=== PATIENT | male | born 1970 | race Caucasian/White ===

== ENCOUNTER 2020-07-01 15:58 | Inpatient (IN) | payer OTHER ==
--- NOTE | 2020-07-01 16:37 | BHS.RME ---
Substance Use & Tx History - Substance Use History Alcohol Substance amount: 1 gallon Frequency of use: Daily Substance route: Oral Date of Last Use: 06/30/20 Cannabis Substance amount: 4 joint Frequency of use: Daily Substance route: Smoking Date of Last Use: 06/30/20 - Last Treatment Date of last treatment: Never Physical/Psych/Mental Status - Behavior General Behavior: Increased activity (restlessness, agitation) Eye Contact: Normal Other Behaviors: Mannerisms - Cooperativeness Cooperativeness: Cooperative - Thinking Thought Processes: Tight, Logical Thought content: Future oriented - Physical Health Problems Is patient presently having any pain?: Yes (chronic backpain) Does patient presently have any injuries (include location): No Does patient currently have a fever: No CIWA Nausea/Vomitin-Mild Nausea/No Vomiting Muscle Tremors: 2 Anxiety: 2 Agitation: 2 Paroxysmal Sweats: 2 Orientation: 0-Oriented Tacttile Disturbances: 1-Very Mild Itch/Numbness Auditory Disturbances: 2-Mild Harshness/Frighten Visual Disturbances: 0-None Headache: 1-Very Mild CIWA-Ar Total Score: 13
--- NOTE | 2020-07-01 17:08 | HP ---
CIWA Score Nausea/Vomitin-Mild Nausea/No Vomiting Muscle Tremors: 3 Anxiety: 2 Agitation: 2 Paroxysmal Sweats: 2 Orientation: 0-Oriented Tacttile Disturbances: 1-Very Mild Itch/Numbness Auditory Disturbances: 2-Mild Harshness/Frighten Visual Disturbances: 0-None Headache: 1-Very Mild CIWA-Ar Total Score: 14 - Admission Criteria OASAS Guidelines: Admission for Medically Managed Detox: Requires at least one of the followin. CIWA greater than 12 2. Seizures within the past 24 hours 3. Delirium tremens within the past 24 hours 4. Hallucinations within the past 24 hours 5. Acute intervention needed for co occurring medical disorder 6. Acute intervention needed for co occurring psychiatric disorder 7. Severe withdrawal that cannot be handled at a lower level of care (continued vomiting, continued diarrhea, abnormal vital signs) requiring intravenous medication and/or fluids 8. Patient presents the following: CIWA greater than 12 Admission Criteria Met: Admission criteria met Admission ROS S - [facility] Chief Complaint: I need detox Allergies/Adverse Reactions: Allergies Allergy/AdvReac Type Severity Reaction Status Date / Time acetaminophen [From Tylenol] Allergy Severe Hives Verified 07/01/20 17:59 codeine Allergy Severe Hives Verified 07/01/20 17:59 History of Present Illness: Patient is a 50 [id number] who presents for detox from alcohol. Patient was evaluated at [facility] last night for intoxication then sent here this afternoon. He reports this as his first time in detox. Exam Limitations: No Limitations - Ebola screening Have you traveled outside of the country in the last 21 days: No Have you had contact with anyone from an Ebola affected area: No Have you been sick,other than usual withdrawal symptoms: No Do you have a fever: No - Review of Systems Constitutional: Chills, Loss of Appetite EENT: reports: Blurred Vision Respiratory: reports: No Symptoms reported Cardiac: reports: No Symptoms Reported GI: reports: Diarrhea, Nausea, Poor Appetite, Vomiting, Abdominal cramping : reports: No Symptoms Reported Musculoskeletal: reports: Back Pain, Joint Pain, Muscle Pain, Muscle Weakness Integumentary: reports: Flushing Neuro: reports: Headache, Numbness, Tremors, Weakness, Unsteady Gait Endocrine: reports: No Symptoms Reported Hematology: reports: Anemia Psychiatric: reports: Anxious Other Systems: Reviewed and Negative Patient History - Patient Medical History Hx Anemia: Yes Hx Asthma: No Hx Chronic Obstructive Pulmonary Disease (COPD): No Hx Cancer: No Hx Cardiac Disorders: No Hx Congestive Heart Failure: No Hx Hypertension: Yes Hx Hypercholesterolemia: No Hx Pacemaker: No HX Cerebrovascular Accident: Yes (2017) Hx Seizures: Yes (2018) Hx Dementia: No Hx Diabetes: No Hx Gastrointestinal Disorders: Yes (GERD) Hx Liver Disease: No Hx Genitourinary Disorders: No Hx Sexually Transmitted Disorders: No Hx Renal Disease (ESRD): No Hx Thyroid Disease: No Hx Human Immunodeficiency Virus (HIV): No Hx Hepatitis C: No Hx Depression: No Hx Suicide Attempt: No Hx Bipolar Disorder: Yes Hx Schizophrenia: No - Patient Surgical History Past Surgical History: Yes Hx Neurologic Surgery: Yes (C2 to T2 laminectomy 2014) Hx Orthopedic Surgery: Yes (bilateral LEs for several fractures, carpal tunnel surgery in both hands) Anesthesia Reaction: No - PPD History Previous Implant?: Yes Documented Results: Negative w/o proof Implanted On Prior [facility] Admission?: No PPD to be Administered?: Yes - Smoking Cessation Smoking history: Current every day smoker Have you smoked in the past 12 months: Yes Aproximately how many cigarettes per day: 20 Hx Chewing Tobacco Use: No Initiated information on smoking cessation: Yes 'Breaking Loose' booklet given: 07/01/20 - Substances abused Alcohol Substance route: Oral Frequency: Daily Amount used: 1 gallon of vodka daily Age of first use: 11 Date of last use: 07/01/20 Admission Physical Exam BHS - Physical General Appearance: Yes: Mild Distress, Tremorous, Sweating, Other (multiple facial piercing) HEENTM: Yes: Hearing grossly Normal, Normocephalic, Normal Voice, Pharynx Normal Respiratory: Yes: Chest Non-Tender, Lungs Clear, Normal Breath Sounds, No Respiratory Distress, No Accessory Muscle Use Neck: Yes: No masses,lesions,Nodules, Supple Breast: Yes: Breast Exam Deferred Cardiology: Yes: Regular Rhythm, Regular Rate, S1, S2 Abdominal: Yes: Normal Bowel Sounds, Non Tender, Soft Genitourinary: Yes: Within Normal Limits Back: Yes: Normal Inspection Musculoskeletal: Yes: Back pain, Muscle weakness Extremities: Yes: Tremors Neurological: Yes: Normal Mood/Affect, Normal Response, Numbness Integumentary: Yes: Cold, Other (left knee abrasion from fall) Lymphatic: Yes: Within Normal Limits - Diagnostic (1) Alcohol dependence, uncomplicated Current Visit: Yes Status: Acute (2) Nicotine dependence Current Visit: Yes Status: Acute Qualifiers: Nicotine product type: cigarettes Substance use status: uncomplicated Qualified Code(s): F17.210 - Nicotine dependence, cigarettes, uncomplicated (3) Chronic back pain Current Visit: Yes Status: Chronic Qualifiers: Back pain location: thoracic back pain Back pain laterality: bilateral Qualified Code(s): M54.6 - Pain in thoracic spine; G89.29 - Other chronic pain Cleared for Admission BHS - Detox or Rehab Detox Regimen/Protocol: Librium Claeared for Rehab Admission: No Breathalyzer - Breathalyzer Breathalyzer: 0.122 Urine Drug Screen - Test Device Lot number: [id number] Expiration date: 06/13/22 - Control Is test valid?: Yes - Results Urine drug screen results: THC-Marijuana, MTD-Methadone, BUP-Suboxone Inpatient Rehab Admission - Rehab Decision to Admit Inpatient rehab admission?: No
[2020-07-01] MEDS ORDERED: MAG HYDROX/AL HYDROX/SIMETH 30 ML UNIT-DOSE CUP PO PRN (17:20)
[2020-07-01] MEDS ORDERED: MENTHOL/PHENOL 1 EACH UD MM PRN (17:20)
[2020-07-01] MEDS ORDERED: NICOTINE POLACRILEX 2 MG GUM BUC PRN (17:20)
[2020-07-01] MEDS ORDERED: IBUPROFEN 400 MG TABLET (FP) PO PRN (17:20)
[2020-07-01] MEDS ORDERED: MAGNESIUM HYDROX 2400MG/30ML ORAL SUSPENSION 30 ML CUP PO PRN (17:20)
[2020-07-01] MEDS ORDERED: MAGNESIUM CITRATE 300 ML BOTTLE PO PRN (17:20)
[2020-07-01] MEDS ORDERED: chlordiazePOXIDE HCL 10 MG CAPSULE PO PRN (17:20)
[2020-07-01] MEDS ORDERED: BISMUTH SUBSALICYLATE 524 MG/30 ML UD PO PRN (17:20)
[2020-07-01] MEDS ORDERED: ONDANSETRON *ODT* 4 MG TABLET SL ONE (17:20)
[2020-07-01 18:12] VITALS: BMI 29.1
[2020-07-01] MEDS: hydrOXYzine PAMOATE 25 MG CAPSULE (FP) PO SCH ×2 (19:27→23:02)
[2020-07-01] MEDS: MELATONIN 5 MG TABLETS PO SCH (23:02)
[2020-07-01] MEDS: THIAMINE HCL 100 MG TABLET (FP) PO SCH (23:02)
[2020-07-01] MEDS: chlordiazePOXIDE HCL 25 MG CAPSULE PO SCH (23:02)
[2020-07-02] MEDS: hydrOXYzine PAMOATE 25 MG CAPSULE (FP) PO SCH ×5 (06:06→22:23)
[2020-07-02] MEDS: chlordiazePOXIDE HCL 25 MG CAPSULE PO SCH ×2 (06:06→12:29)
[2020-07-02] MEDS: PRENATAL VITAMINS W/ FOLIC ACID TABLET (FP) PO SCH (10:26)
[2020-07-02] MEDS: NICOTINE 7 MG/24 HOURS TOPICAL PATCH TD SCH (10:27)
[2020-07-02 12:10] LABS: HEMATOCRIT 31.2 % (35.4-49); HEMOGLOBIN 10.7 GM/dL (11.7-16.9); MCH 33.3 pg (25.7-33.7); MCHC 34.3 g/dl (32.0-35.9); MEAN CELL VOLUME 97.2 fl (80-96); MEAN PLT VOLUME 8.2 fl (7.5-11.1); PLATELET COUNT 56 K/MM3 (134-434); RBC 3.21 M/mm3 (4.00-5.60); RDW 13.8 % (11.9-15.9)
[2020-07-02 12:21] LABS: WHITE BLOOD COUNT 1.7 K/mm3 (4.0-10.0)
[2020-07-02 12:31] LABS: ALBUMIN 2.5 g/dl (3.4-5.0); BILIRUBIN,TOTAL 2.2 mg/dL (0.2-1); BLOOD UREA NITROGEN 6.7 mg/dL (7-18); CALCIUM 7.9 mg/dL (8.5-10.1); CREATININE 0.8 mg/dL (0.55-1.3); POTASSIUM 3.3 mmol/L (3.5-5.1); TOT PROT 6.6 g/dl (6.4-8.2)
--- NOTE | 2020-07-02 13:30 | PN ---
[facility] CIWA - CIWA Score Nausea/Vomitin-Mild Nausea/No Vomiting Muscle Tremors: 2 Anxiety: 3 Agitation: 1-Slight > Activity Paroxysmal Sweats: 1-Minimal Palms Moist Orientation: 0-Oriented Tacttile Disturbances: 1-Very Mild Itch/Numbness Auditory Disturbances: 0-None Visual Disturbances: 2-Mild Sensitivity Headache: 0-None Present CIWA-Ar Total Score: 11 BHS Progress Note (SOAP) Subjective: 50 years old male first [facility] detox admission Laboratory Tests 07/02/20 07/02/20 07/02/20 07:15 07:15 07:15 WBC 1.7 L* RBC 3.21 L Hgb 10.7 L Hct 31.2 L MCV 97.2 H MCH 33.3 MCHC 34.3 RDW 13.8 Plt Count 56 L MPV 8.2 Sodium 138 Potassium 3.3 L Chloride 103 Carbon Dioxide 30 Anion Gap 5 L BUN 6.7 L Creatinine 0.8 Est GFR (CKD-EPI)AfAm 122.43 Est GFR (CKD-EPI)NonAf 105.63 Random Glucose 89 Calcium 7.9 L Total Bilirubin 2.2 H AST 185 H ALT 58 Alkaline Phosphatase 187 H Total Protein 6.6 Albumin 2.5 L Syphilis Serology Non-reactive low wbc with ast elevation was admitted on 07/01/20 for alcohol withdrawal sx management treating with librium detox regiment Objective: 07/02/20 13:36 Vital Signs - 24 hr 07/01/20 07/01/20 07/01/20 18:09 18:38 20:58 Temperature 98.8 F 98.0 F 98.4 F Pulse Rate 89 78 85 Respiratory 18 18 18 Rate Blood Pressure 141/86 136/89 128/89 O2 Sat by Pulse 98 94 L Oximetry (%) 07/02/20 07/02/20 07/02/20 06:07 08:35 12:57 Temperature 96.8 F L 98.4 F 98 F Pulse Rate 69 64 66 Respiratory 16 18 16 Rate Blood Pressure 129/76 104/62 111/64 O2 Sat by Pulse 100 100 100 Oximetry (%) 07/02/20 13:36 discontinue librium begin ativan for alcohol withdrawal 07/02/20 13:42 repeat ast Assessment: 07/02/20 13:36 alcohol withdrawal Plan: ativan regiment
[2020-07-02] MEDS ORDERED: LORazepam 0.5 MG TABLET ONE (13:58)
[2020-07-02] MEDS: LORazepam 1 MG TABLET PO PRN (14:03)
[2020-07-02] MEDS: LORazepam 2 MG TABLET PO SCH ×2 (17:11→22:22)
[2020-07-02] MEDS: MELATONIN 5 MG TABLETS PO SCH (22:22)
[2020-07-02] MEDS: THIAMINE HCL 100 MG TABLET (FP) PO SCH (22:23)
[2020-07-03] MEDS: METHOCARBAMOL 500 MG TABLET PO PRN (03:05)
[2020-07-03] MEDS: LORazepam 1 MG TABLET PO PRN ×2 (03:07→13:31)
[2020-07-03] MEDS ORDERED: chlordiazePOXIDE 5 MG CAPSULE PO SCH (05:00)
[2020-07-03] MEDS: LORazepam 1 MG TABLET PO SCH ×4 (06:20→22:49)
[2020-07-03] MEDS: hydrOXYzine PAMOATE 25 MG CAPSULE (FP) PO SCH ×5 (06:20→22:49)
[2020-07-03] MEDS: PRENATAL VITAMINS W/ FOLIC ACID TABLET (FP) PO SCH (10:11)
[2020-07-03] MEDS: NICOTINE 7 MG/24 HOURS TOPICAL PATCH TD SCH (10:24)
[2020-07-03 10:58] LABS: HEMOGLOBIN 10.8 GM/dL (11.7-16.9); MEAN PLT VOLUME 8.5 fl (7.5-11.1); RBC 3.31 M/mm3 (4.00-5.60); WHITE BLOOD COUNT 3.3 K/mm3 (4.0-10.0)
[2020-07-03 11:03] LABS: HEMATOCRIT 31.3 % (35.4-49); MCH 32.7 pg (25.7-33.7); MCHC 34.5 g/dl (32.0-35.9); MEAN CELL VOLUME 94.7 fl (80-96); PLATELET COUNT 53 K/MM3 (134-434); RDW 13.7 % (11.9-15.9)
--- NOTE | 2020-07-03 11:45 | PN ---
[facility] CIWA - CIWA Score Nausea/Vomitin-Mild Nausea/No Vomiting Muscle Tremors: 1-None Visible, but [place] Anxiety: 1-Mildly Anxious Agitation: 1-Slight > Activity Paroxysmal Sweats: 1-Minimal Palms Moist Orientation: 0-Oriented Tacttile Disturbances: 0-None Auditory Disturbances: 0-None Visual Disturbances: 1-Very Mild Sensitivity Headache: 1-Very Mild CIWA-Ar Total Score: 7 BHS Progress Note (SOAP) Subjective: 50 years old male was admitted on 07/01/20 for alcohol withdrawal sx management treating with ativan detox regiment low wbc repeat wbc result 3.3 muscle cramping robaxin 500mg po x 1 Objective: 07/03/20 11:50 Vital Signs - 24 hr 07/02/20 07/02/20 07/02/20 12:57 16:48 20:38 Temperature 98 F 98.2 F 97.5 F L Pulse Rate 66 67 71 Respiratory 16 16 18 Rate Blood Pressure 111/64 142/93 140/87 O2 Sat by Pulse 100 98 Oximetry (%) 07/03/20 07/03/20 06:16 08:38 Temperature 98.6 F 98.4 F Pulse Rate 76 80 Respiratory 16 18 Rate Blood Pressure 122/66 97/59 L O2 Sat by Pulse 95 Oximetry (%) Laboratory Tests 07/02/20 07/02/20 07/02/20 07:15 07:15 07:15 WBC 1.7 L* RBC 3.21 L Hgb 10.7 L Hct 31.2 L MCV 97.2 H MCH 33.3 MCHC 34.3 RDW 13.8 Plt Count 56 L MPV 8.2 Sodium 138 Potassium 3.3 L Chloride 103 Carbon Dioxide 30 Anion Gap 5 L BUN 6.7 L Creatinine 0.8 Est GFR (CKD-EPI)AfAm 122.43 Est GFR (CKD-EPI)NonAf 105.63 Random Glucose 89 Calcium 7.9 L Total Bilirubin 2.2 H AST 185 H ALT 58 Alkaline Phosphatase 187 H Total Protein 6.6 Albumin 2.5 L Syphilis Serology Non-reactive 07/03/20 07:45 WBC 3.3 L RBC 3.31 L Hgb 10.8 L Hct 31.3 L MCV 94.7 MCH 32.7 MCHC 34.5 RDW 13.7 Plt Count 53 L MPV 8.5 Sodium Potassium Chloride Carbon Dioxide Anion Gap BUN Creatinine Est GFR (CKD-EPI)AfAm Est GFR (CKD-EPI)NonAf Random Glucose Calcium Total Bilirubin AST ALT Alkaline Phosphatase Total Protein Albumin Syphilis Serology covid pending 07/03/20 11:51 ast repeat pending Assessment: 07/03/20 11:52 alcohol withdrawal Plan: ativan regiment
[2020-07-03] MEDS ORDERED: METHOCARBAMOL 500 MG TABLET PO ONE (11:46)
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
[2020-07-03] MEDS: MELATONIN 5 MG TABLETS PO SCH (22:49)
[2020-07-03] MEDS: THIAMINE HCL 100 MG TABLET (FP) PO SCH (22:49)
[2020-07-04] MEDS ORDERED: chlordiazePOXIDE HCL 10 MG CAPSULE PO PRN
[2020-07-04] MEDS: METHOCARBAMOL 500 MG TABLET PO PRN (01:50)
[2020-07-04] MEDS: LORazepam 0.5 MG TABLET PO PRN ×2 (01:50→14:53)
[2020-07-04] MEDS ORDERED: chlordiazePOXIDE HCL 10 MG CAPSULE PO SCH (05:00)
[2020-07-04] MEDS: LORazepam 0.5 MG TABLET PO SCH ×4 (06:01→22:13)
[2020-07-04] MEDS: hydrOXYzine PAMOATE 25 MG CAPSULE (FP) PO SCH ×5 (06:01→22:12)
--- NOTE | 2020-07-04 09:29 | PN ---
Psychiatric Progress Note Vital Signs: Vital Signs Period Temp Pulse Resp BP Sys/Chaney Pulse Ox Last 24 Hr 97.5 F-98.6 F 72-108 18-18 97-125/55-76 95-97 Date of Session: 07/04/20 Chief Complaint:: " I saw six rats in my room." HPI: Patient admitted to for alcohol dependence. ROS: Patient is calm , cooperative, alert +oriented X3. Current Medications: Active Medications Generic Name Dose Route Start Last Admin Trade Name Freq PRN Reason Stop Dose Admin Al Hydroxide/Mg Hydroxide 30 ml 07/01/20 17:20 Mylanta Oral Suspension - PO Q6H PRN DYSPEPSIA Bismuth Subsalicylate 524 mg 07/01/20 17:20 Pepto-Bismol - PO Q1H PRN DIARRHEA Eucalyptus/Menthol/Phenol/Sorbitol 1 each 07/01/20 17:20 Cepastat Lozenge - MM 07/07/20 17:20 Q4H PRN SORE THROAT Hydroxyzine Pamoate 25 mg 07/01/20 18:00 07/04/20 06:01 Vistaril - PO 07/07/20 17:20 25 mg Q4HWA ALANNAH Administration Ibuprofen 400 mg 07/01/20 17:20 Motrin - PO Q6H PRN PAIN LEVEL 1 - 3 Lorazepam 0.5 mg 07/04/20 05:00 07/04/20 06:01 Ativan - PO 07/04/20 23:01 0.5 mg Q6H ALANNAH Administration Lorazepam 0.5 mg 07/04/20 00:00 07/04/20 01:50 Ativan - PO 07/05/20 00:00 0.5 mg Q4H PRN Administration Symptoms of Withdrawal Lorazepam 0.5 mg 07/05/20 05:00 Ativan - PO 07/05/20 05:01 ONCE ONE Magnesium Citrate 300 ml 07/01/20 17:20 Citroma - PO Q48H PRN CONSTIPATION Magnesium Hydroxide 30 ml 07/01/20 17:20 Milk Of Magnesia - PO PRN PRN CONSTIPATION Melatonin 5 mg 07/01/20 22:00 07/03/20 22:49 Melatonin PO 5 mg HS ALANNAH Administration Methocarbamol 500 mg 07/01/20 17:20 07/04/20 01:50 Robaxin - PO 07/07/20 17:20 500 mg Q6H PRN Administration MUSCLE SPASMS Nicotine 7 mg 07/02/20 10:00 07/03/20 10:24 Nicoderm Patch - TD Not Given DAILY ALANNAH Nicotine Polacrilex 2 mg 07/01/20 17:20 Nicorette Gum - BUC Q2H PRN NICOTINE REPLACEMENT RX Multivit/Folic Acid/Iron 1 tab 07/02/20 10:00 07/03/20 10:11 Vitamins ([facility]) - PO 1 tab DAILY ALANNAH Administration Thiamine HCl 100 mg 07/01/20 22:00 07/03/20 22:49 Vitamin B1 - PO 100 mg HS ALANNAH Administration Medication(s) Change(s): Yes. Will add Trazodone 50mg HS. Current Side Effect: No Lab tests ordered: No Lab tests reviewed: Yes Provider note:: Patient seen by Dr. Wall on 07/03/20. Dr. Wall note read and appreciated. Consultation ordered due to patient reporting auditory hallucinations of seeing six rats in his room yesterday. Stated to bond writer that it only occured once. He reports feeling better this morning and denies experiencing auditory/ visual hallucinations. No psychosis noted. At present patient is c/o insomnia. Will order Trazodone 50mg HS. Benefits and side effects discussed. Verbal consent given. Total face to face time:: 25 Mental Status Exam - Mental Status Exam Alert and Oriented to: Time, Place, Person Cognitive Function: Good Patient Appearance: Unkempt (face is covered with piercing rods) Mood: Withdrawn Affect: Mood Congruent Patient Behavior: Cooperative Speech Pattern: Appropriate Voice Loudness: Normal Thought Process: Goal Oriented Thought Disorder: Not Present Hallucinations: Denies Suicidal Ideation: Denies Homicidal Ideation: Denies Insight/Judgement: Poor Sleep: Poorly Appetite: Fair Muscle strength/Tone: Normal Gait/Station: Other (Patient ambulates with a wheelchair.) Psychiatric Treatment Plan - Problem List (1) Substance-induced sleep disorder Comment: .. (2) Alcohol dependence, uncomplicated Comment: .. (3) History of bipolar disorder Comment: .. (4) Nicotine dependence Qualifiers: Nicotine product type: cigarettes Substance use status: in withdrawal Qualified Code(s): F17.213 - Nicotine dependence, cigarettes, with withdrawal Comment: ..
[2020-07-04] MEDS: PRENATAL VITAMINS W/ FOLIC ACID TABLET (FP) PO SCH (10:12)
[2020-07-04] MEDS: NICOTINE 7 MG/24 HOURS TOPICAL PATCH TD SCH (10:13)
--- NOTE | 2020-07-04 13:31 | PN ---
[facility] CIWA - CIWA Score Nausea/Vomitin-No Nausea/No Vomiting Muscle Tremors: 1-None Visible, but [place] Anxiety: 1-Mildly Anxious Agitation: 1-Slight > Activity Paroxysmal Sweats: 1-Minimal Palms Moist Orientation: 0-Oriented Tacttile Disturbances: 0-None Auditory Disturbances: 0-None Visual Disturbances: 0-None Headache: 0-None Present CIWA-Ar Total Score: 4 BHS Progress Note (SOAP) Subjective: 50 years old male was admitted on 07/01/20 for alcohol withdrawal sx management treating with ativan detox regiment reports seeing animal running on the floor and bugs moving on the wall at night mr saul is alert oriented x 3 denies suicidal no homocidal no self destructive behavior noted denies auditory hallucination case discussed with psychiatrist mr saul states "I feel much better" denies visual hallucination discussing aftercare with staff that mr saul prefers to go to [facility] for alcohol abuse treatment mr saul requests suboxone encourage mr saul returning to his suboxone provider for continuity of care Objective: 07/04/20 13:33 Vital Signs - 24 hr 07/03/20 07/03/20 07/04/20 16:15 20:22 05:55 Temperature 98.2 F 98.6 F 98.6 F Pulse Rate 78 108 H 72 Respiratory 18 18 18 Rate Blood Pressure 125/76 104/63 97/55 L O2 Sat by Pulse 95 97 95 Oximetry (%) 07/04/20 07/04/20 08:54 12:35 Temperature 98.2 F 98.6 F Pulse Rate 78 70 Respiratory 18 18 Rate Blood Pressure 85/53 L 113/78 O2 Sat by Pulse 95 Oximetry (%) Laboratory Tests 07/01/20 07/02/20 07/02/20 05:50 07:15 07:15 WBC 1.7 L* RBC 3.21 L Hgb 10.7 L Hct 31.2 L MCV 97.2 H MCH 33.3 MCHC 34.3 RDW 13.8 Plt Count 56 L MPV 8.2 Sodium Potassium Chloride Carbon Dioxide Anion Gap BUN Creatinine Est GFR (CKD-EPI)AfAm Est GFR (CKD-EPI)NonAf Random Glucose Calcium Total Bilirubin AST ALT Alkaline Phosphatase Total Protein Albumin Syphilis Serology Non-reactive COVID-19 (KELLIE) Not detected HIV Ag/Ab Combo Qual 07/02/20 07/03/20 07/03/20 07:15 07:45 07:45 WBC 3.3 L RBC 3.31 L Hgb 10.8 L Hct 31.3 L MCV 94.7 MCH 32.7 MCHC 34.5 RDW 13.7 Plt Count 53 L MPV 8.5 Sodium 138 Potassium 3.3 L Chloride 103 Carbon Dioxide 30 Anion Gap 5 L BUN 6.7 L Creatinine 0.8 Est GFR (CKD-EPI)AfAm 122.43 Est GFR (CKD-EPI)NonAf 105.63 Random Glucose 89 Calcium 7.9 L Total Bilirubin 2.2 H AST 185 H ALT 58 Alkaline Phosphatase 187 H Total Protein 6.6 Albumin 2.5 L Syphilis Serology COVID-19 (KELLIE) HIV Ag/Ab Combo Qual Negative lab noted anemia Assessment: 07/04/20 13:36 alcohol withdrawal anemia Plan: ativan regiment ferrous sulfate 325 mg po daily
[2020-07-04] MEDS: FERROUS SO4 325 MG TABLET (FP) PO SCH (14:52)
[2020-07-04] MEDS ORDERED: traZODone HCL 50 MG TABLET (FP) PO SCH (22:00)
[2020-07-04] MEDS: MELATONIN 5 MG TABLETS PO SCH (22:13)
[2020-07-04] MEDS: THIAMINE HCL 100 MG TABLET (FP) PO SCH (22:13)
[2020-07-05] MEDS ORDERED: chlordiazePOXIDE HCL 10 MG CAPSULE PO ONE (05:00)
[2020-07-05] MEDS ORDERED: LORazepam 0.5 MG TABLET PO ONE (05:00)
[2020-07-05] MEDS: hydrOXYzine PAMOATE 25 MG CAPSULE (FP) PO SCH ×2 (05:54→09:35)
[2020-07-05] MEDS: FERROUS SO4 325 MG TABLET (FP) PO SCH (08:42)
[2020-07-05 09:17] VITALS: BP 113/68; PULSE 64; TEMP 98.2
[2020-07-05] MEDS: PRENATAL VITAMINS W/ FOLIC ACID TABLET (FP) PO SCH (09:35)
[2020-07-05] MEDS: NICOTINE 7 MG/24 HOURS TOPICAL PATCH TD SCH (09:37)
--- NOTE | 2020-07-05 11:37 | DS ---
[facility] Detox Discharge Summary Admission Date: 07/01/20 Discharge Date: 07/05/20 - History Present History: Alcohol Dependence Additional Comments: 50 years old male was admitted 07/01/20 for alcohol withdrawal sx management treated with ativan detox regiment seen by psychiatrist x 2 in detox trazodine po hs mr saul has completed the ativan regiment and is tolerated well General Appearance: Yes: no Distress, less Tremorous, no Sweating, Other (multiple facial piercing) HEENTM: Yes: Hearing grossly Normal, Normocephalic, Normal Voice, Pharynx Normal Respiratory: Yes: Chest Non-Tender, Lungs Clear, Normal Breath Sounds, No Respiratory Distress, No Accessory Muscle Use Neck: Yes: No masses,lesions,Nodules, Supple Breast: Yes: Breast Exam Deferred Cardiology: Yes: Regular Rhythm, Regular Rate, S1, S2 Abdominal: Yes: Normal Bowel Sounds, Non Tender, Soft Genitourinary: Yes: Within Normal Limits Back: Yes: Normal Inspection Musculoskeletal: Yes: Back pain, Muscle weakness Extremities: Yes: mild Tremors Neurological: Yes: Normal Mood/Affect, Normal Response, Numbness Integumentary: Yes: Cold, Other (left knee abrasion from fall) Lymphatic: Yes: Within Normal Limits Pertinent Past History: time for discharge 34 minutes ambulating with wheelchair slow steady - Physical Exam Results Vital Signs: Vital Signs Temperature 98.2 F 07/05/20 08:35 Pulse Rate 64 07/05/20 08:35 Respiratory Rate 18 07/05/20 08:35 Blood Pressure 113/68 07/05/20 08:35 O2 Sat by Pulse Oximetry (%) 95 07/05/20 08:35 Pertinent Admission Physical Exam Findings: alcohol withdrawal Laboratory Tests 07/01/20 07/02/20 07/02/20 05:50 07:15 07:15 WBC 1.7 L* RBC 3.21 L Hgb 10.7 L Hct 31.2 L MCV 97.2 H MCH 33.3 MCHC 34.3 RDW 13.8 Plt Count 56 L MPV 8.2 Sodium Potassium Chloride Carbon Dioxide Anion Gap BUN Creatinine Est GFR (CKD-EPI)AfAm Est GFR (CKD-EPI)NonAf Random Glucose Calcium Total Bilirubin AST ALT Alkaline Phosphatase Total Protein Albumin Syphilis Serology Non-reactive COVID-19 ([facility]) Not detected HIV Ag/Ab Combo Qual 07/02/20 07/03/20 07/03/20 07:15 07:45 07:45 WBC 3.3 L RBC 3.31 L Hgb 10.8 L Hct 31.3 L MCV 94.7 MCH 32.7 MCHC 34.5 RDW 13.7 Plt Count 53 L MPV 8.5 Sodium 138 Potassium 3.3 L Chloride 103 Carbon Dioxide 30 Anion Gap 5 L BUN 6.7 L Creatinine 0.8 Est GFR (CKD-EPI)AfAm 122.43 Est GFR (CKD-EPI)NonAf 105.63 Random Glucose 89 Calcium 7.9 L Total Bilirubin 2.2 H AST 185 H ALT 58 Alkaline Phosphatase 187 H Total Protein 6.6 Albumin 2.5 L Syphilis Serology COVID-19 ([facility]) HIV Ag/Ab Combo Qual Negative alcohol induced ast elevation follow up with rehab "[place] my house" - Treatment Hospital Course: Detox Protocol Followed, Detoxed Safely, Responded well, Discharged Condition Good, Rehab Referral Accepted Patient has Accepted a Rehab Referral [facility]: [facility] home" - Medication Discharge Medications: Ambulatory Orders NK [No Known Home Medication] 07/01/20 - Diagnosis (1) Alcohol dependence, uncomplicated Status: Acute (2) Nicotine dependence Status: Acute Qualifiers: Nicotine product type: cigarettes Substance use status: in withdrawal Qualified Code(s): F17.213 - Nicotine dependence, cigarettes, with withdrawal (3) Substance induced mood disorder Status: Suspected (4) Wheel chair as ambulatory aid Status: Chronic - AMA Did Patient Leave Against Medical Advice: No CIWA Score - CIWA Score Nausea/Vomitin-No Nausea/No Vomiting Muscle Tremors: None Anxiety: 1-Mildly Anxious Agitation: 1-Slight > Activity Paroxysmal Sweats: No Perspiration Orientation: 0-Oriented Tacttile Disturbances: 0-None Auditory Disturbances: 0-None Visual Disturbances: 0-None Headache: 0-None Present CIWA-Ar Total Score: 2
== END 2020-07-05 09:45 | disposition home or self-care (01) | DRG 775 ==
LOC: YASAS 15:58 → Y3N 17:25
PROVIDERS: ADMIT Allergy & Immunology; ATTEND Allergy & Immunology
PROC: HZ2ZZZZ Detoxification Services for Substance Abuse Treatment (ICD-10-PCS; principal; 2020-07-01)
DX: F10.230 Alcohol dependence with withdrawal, uncomplicated (principal); F17.213 Nicotine dependence, cigarettes, with withdrawal; F19.282 Other psychoactive substance dependence with psychoactive substance-induced sleep disorder; F19.24 Other psychoactive substance dependence with psychoactive substance-induced mood disorder; F31.9 Bipolar disorder, unspecified; D64.9 Anemia, unspecified; K21.9 Gastro-esophageal reflux disease without esophagitis; I10 Essential (primary) hypertension; M54.6 Pain in thoracic spine; G89.29 Other chronic pain; I25.2 Old myocardial infarction; Z86.73 Personal history of transient ischemic attack (TIA), and cerebral infarction without residual deficits; Z99.89 Dependence on other enabling machines and devices; Z88.6 Allergy status to analgesic agent; Z98.890 Other specified postprocedural states; Z88.5 Allergy status to narcotic agent; Z56.0 Unemployment, unspecified; Z59.0 Homelessness
CPT/HCPCS: 36415; 80053; 85027; 86780; 86803; 87389; Q0162; U0003